=== PATIENT | male | born 1945 | race Caucasian/White ===

== ENCOUNTER 2025-06-05 10:50 | Inpatient (IN) | payer MEDICARE ==
[~2025-06-05] VITALS: Ht 160 cm; Wt 81.6 kg
[2025-06-05] MEDS: UNRESOLVED CLARIFICATION ENTRY XX SCH (00:01)
[~2025-06-05 10:50] MED LIST: ASPI81TA26 PO; TAMS1CAP17 PO; VENTAER INH; VITA250T27 PO; VITMTA PO
[2025-06-05 13:51] VITALS: BP 102/69; TEMP 97.1; O2SAT 94
[2025-06-05] MEDS ORDERED: MOM 30 ML SUSPENSION UDC PO PRN (14:55)
[2025-06-05] MEDS ORDERED: MAALOX 30 ML SUSP *UDC PO PRN (14:55)
[2025-06-05] MEDS ORDERED: ACETAMINOPHEN 325 MG TAB PO PRN (14:55)
[2025-06-05 16:00] VITALS: BP 103/51; TEMP 96.7; O2SAT 90
[2025-06-05] MEDS ORDERED: PIPERACILLIN/TAZOBACTAM SOD 3.375 GM in DEXTROSE 5% (D5W) ADV/MINI-BAG 50 ML IV SCH (16:20)
[2025-06-05] MEDS ORDERED: ARFO15VI18 INH (16:37)
[2025-06-05] MEDS ORDERED: ACET-907 PO (16:37)
[2025-06-05] MEDS ORDERED: IPRA0.00 INH (16:37)
[2025-06-05] MEDS ORDERED: ALBU2.5V10 INH (16:37)
[2025-06-05 16:38] LABS: BASO # 0.0 10^3/uL (0.0-0.2); BASO % 0.3 % (0.0-1.0); EOS # 0.2 10^3/uL (0.0-0.5); EOS % 1.9 % (0.0-3.0); LYMPH # 0.4 10^3/uL (1.5-5.0); LYMPH % 3.2 % (24.0-44.0); MONO # 0.8 10^3/uL (0.0-0.8); MONO % 7.1 % (2.0-8.0); NEUTROPHILS # 10.1 10^3/uL (1.5-8.5); NEUTROPHILS % 87.1 % (36.0-66.0); PLATELET COUNT, AUTOMATED 358 10^3/uL (150-450)
[2025-06-05] MEDS ORDERED: DEBR6.5S4 AU (16:44)
[2025-06-05] MEDS: SODIUM CHLORIDE HYPERTONIC 3% 4ML NEB SOL INH SCH (16:44)
[2025-06-05] MEDS: LEVALBUTEROL 1.25 MG 0.5ML CONCENTRATE NEB INH SCH (16:44)
[2025-06-05] MEDS ORDERED: CYCL-707 PO (16:44)
[2025-06-05] MEDS ORDERED: CYCL5TAB4 PO (16:44)
[2025-06-05] MEDS ORDERED: BUDE0.5S6 INH (16:44)
[2025-06-05] MEDS ORDERED: DULO30CA47 PO (16:46)
[2025-06-05] MEDS ORDERED: FENT12DI8 TD (16:49)
[2025-06-05] MEDS ORDERED: FERR324T21 PO (16:49)
[2025-06-05] MEDS ORDERED: ENOX40IN3 SC (16:49)
[2025-06-05] MEDS ORDERED: PROBCAP14 PO (16:56)
[2025-06-05] MEDS ORDERED: MED REC COMMENT (16:56)
[2025-06-05] MEDS ORDERED: [UNRECOGNIZED DRUG - CODE] IV (16:56)
[2025-06-05] MEDS ORDERED: ONDA4INJ4 IVP (17:03)
[2025-06-05] MEDS ORDERED: AZEL1SPR4 NARES (17:03)
[2025-06-05] MEDS ORDERED: OXYC1TAB23 PO (17:03)
[2025-06-05] MEDS ORDERED: OMEP-173 PO (17:03)
[2025-06-05] MEDS ORDERED: ASPE4PAD2 TOP (17:03)
[2025-06-05 17:15] LABS: CALCIUM LEVEL 9.1 MG/DL (8.3-10.6); CARBON DIOXIDE LEVEL 29 MMOL/L (20-31); CHLORIDE LEVEL 104 MMOL/L (98-107); CREATININE FOR GFR 0.55 MG/DL (0.70-1.30); GLOMERULAR FILTRATION RATE > 90.0 (>42); MAGNESIUM LEVEL 1.8 MG/DL (1.8-2.4); PHOSPHORUS LEVEL 3.3 MG/DL (2.4-5.1); POTASSIUM SERUM 4.5 MMOL/L (3.5-5.1); SODIUM LEVEL 140 MMOL/L (136-145)
[2025-06-05] MEDS ORDERED: HOME MED LIST COMPLETE! XX SCH (17:15)
[2025-06-05 19:30] VITALS: BP 89/55; TEMP 96.9; O2SAT 91
[2025-06-05] MEDS: LEVALBUTEROL 1.25 MG 0.5ML CONCENTRATE NEB INH PRN (20:06)
[2025-06-05] MEDS: OMEPRAZOLE 20MG CAP PO SCH (20:48)
[2025-06-05] MEDS: guaiFENesin ER TABLET 600 MG TAB PO SCH (20:48)
[2025-06-05] MEDS: HEPARIN SOD 5000 UNITS/ML 1 ML VIAL/SYRINGE SC SCH (20:49)
[2025-06-06] VITALS: BP 90/55; TEMP 96.7; O2SAT 96
[2025-06-06 04:00] VITALS: BP 74/45; TEMP 96.6; O2SAT 96
[2025-06-06 06:17] LABS: BASO # 0.0 10^3/uL (0.0-0.2); BASO % 0.2 % (0.0-1.0); EOS # 0.3 10^3/uL (0.0-0.5); EOS % 2.4 % (0.0-3.0); LYMPH # 0.4 10^3/uL (1.5-5.0); LYMPH % 3.7 % (24.0-44.0); MONO # 0.7 10^3/uL (0.0-0.8); MONO % 6.5 % (2.0-8.0); NEUTROPHILS # 9.6 10^3/uL (1.5-8.5); NEUTROPHILS % 86.7 % (36.0-66.0); PLATELET COUNT, AUTOMATED 329 10^3/uL (150-450)
[2025-06-06 06:43] LABS: CALCIUM LEVEL 9.2 MG/DL (8.3-10.6); CARBON DIOXIDE LEVEL 30 MMOL/L (20-31); CHLORIDE LEVEL 101 MMOL/L (98-107); CREATININE FOR GFR 0.45 MG/DL (0.70-1.30); GLOMERULAR FILTRATION RATE > 90.0 (>42); MAGNESIUM LEVEL 1.8 MG/DL (1.8-2.4); POTASSIUM SERUM 4.5 MMOL/L (3.5-5.1); SODIUM LEVEL 141 MMOL/L (136-145)
[2025-06-06 07:16] VITALS: O2SAT 92
[2025-06-06 07:56] VITALS: BP 99/61; TEMP 97.2; O2SAT 94
[2025-06-06] MEDS: VANCOMYCIN 125MG CAPSULE PO SCH (10:34)
[2025-06-06 11:51] VITALS: BP 99/61; TEMP 97.6; O2SAT 96
[2025-06-06] MEDS ORDERED: HYOSCYAMINE SULFATE 0.125 MG SUBL TABLET SL PRN (13:30)
[2025-06-06] MEDS ORDERED: POLYVINYL ALCOHOL OPHTH SOLN 15ML (LIQUITEARS) OU PRN (13:30)
[2025-06-06] MEDS ORDERED: ATROPINE SULFATE 1% OPHTH SOLN 2 ML BTL SL PRN (13:30)
[2025-06-06] MEDS ORDERED: SALIVA SUBSTITUTE BTL MT PRN (13:30)
[2025-06-06] MEDS: UNRESOLVED CLARIFICATION ENTRY XX SCH (14:00)
[2025-06-07] MEDS: LORazepam 0.5 MG TAB PO PRN (10:09)
[2025-06-07] MEDS: LORazepam 1 MG TAB PO PRN (11:17)
[2025-06-07] MEDS: MORPHINE 10 MG/0.5 ML ORAL CONCENTRATE SOLUTION U/D SL PRN (11:18)
[2025-06-07] MEDS: HALOPERIDOL 2 MG TAB PO PRN (11:18)
[2025-06-07] MEDS ORDERED: HYOS125TA PO (12:02)
[2025-06-07] MEDS ORDERED: ATIV1TAB10 PO (12:02)
[2025-06-07] MEDS ORDERED: MORP1SOL5 PO (12:04)
== END 2025-06-07 14:20 | DRG 205 ==
LOC: M PCU 13:43 → OBSVTOIN 15:06 → M MSPAV 06-06 17:23
PROVIDERS: ADMIT General Practice; ATTEND Student in an Organized Health Care Education/Training Program
DX: J98.11 Atelectasis (principal); L89.154 Pressure ulcer of sacral region, stage 4; J93.9 Pneumothorax, unspecified; J96.11 Chronic respiratory failure with hypoxia; E87.1 Hypo-osmolality and hyponatremia; I50.32 Chronic diastolic (congestive) heart failure; C34.91 Malignant neoplasm of unspecified part of right bronchus or lung; C79.51 Secondary malignant neoplasm of bone; J44.9 Chronic obstructive pulmonary disease, unspecified; Z66 Do not resuscitate; Z99.81 Dependence on supplemental oxygen; M48.00 Spinal stenosis, site unspecified; Z99.3 Dependence on wheelchair; I11.0 Hypertensive heart disease with heart failure; F41.9 Anxiety disorder, unspecified; F32.A Depression, unspecified; I25.10 Atherosclerotic heart disease of native coronary artery without angina pectoris; K21.9 Gastro-esophageal reflux disease without esophagitis; N40.0 Benign prostatic hyperplasia without lower urinary tract symptoms; Z87.891 Personal history of nicotine dependence; K44.9 Diaphragmatic hernia without obstruction or gangrene; I48.91 Unspecified atrial fibrillation; Z79.82 Long term (current) use of aspirin; Z79.891 Long term (current) use of opiate analgesic; Z79.2 Long term (current) use of antibiotics

== ENCOUNTER 2025-06-07 13:00 | Outpatient (RCR) | payer MEDICARE ==
[~2025-06-07 13:00] MED LIST changes: +ACET-907 PO; +ALBU2.5V10 INH; +ARFO15VI18 INH; +ASPE4PAD2 TOP; +ATIV1TAB10 PO; +AZEL1SPR4 NARES; +BUDE0.5S6 INH; +CYCL-707 PO; +CYCL5TAB4 PO; +DEBR6.5S4 AU; +DULO30CA47 PO; +ENOX40IN3 SC; +FENT12DI8 TD; +FERR324T21 PO; +HYOS125TA PO; +IPRA0.00 INH; +MED REC COMMENT; +MORP1SOL5 PO; +OMEP-173 PO; +ONDA4INJ4 IVP; +OXYC1TAB23 PO; +PROBCAP14 PO; +[UNRECOGNIZED DRUG - CODE] IV
== END 2025-06-30 ==
LOC: M ONCR 13:00
PROVIDERS: ATTEND General Practice
DX: Z51.0 Encounter for antineoplastic radiation therapy (principal); C34.31 Malignant neoplasm of lower lobe, right bronchus or lung